=== PATIENT | female | born 1970 | race Caucasian/White ===

== ENCOUNTER 2023-12-18 05:46 | Emergency (ER) | payer SELFPAY ==
[2023-12-18 05:48] VITALS: BP 132/99; PULSE 76; RESP 18; TEMP 36.6; O2SAT 97; BMI 27.4
--- NOTE | 2023-12-18 06:05 | RAD_ITS ---
EXAM: XR LEFT WRIST COMPLETE, 3 OR MORE VIEWS CLINICAL INDICATION: pain pain TECHNIQUE: Frontal, lateral and oblique views of the left wrist. COMPARISON: No relevant prior studies available. FINDINGS: BONES/JOINTS: Unremarkable. No acute fracture. No subluxation. Normal alignment. Preservation of the joint space. No sclerotic or destructive changes observed. SOFT TISSUES: Unremarkable. No soft tissue gas. No radiopaque foreign body. RAD/Wrist min 3 Views IMPRESSION: No demonstrated fracture, dislocation, or destructive osseous lesion. Electronically Signed: Chris Frye MD at 6:56 EDT Reading Location ID and State: [facility] / [place] , Service support ,
--- NOTE | 2023-12-18 06:10 | EX.ED.UPPERE ---
HPI History of Present Illness Chief Complaint: Upper Extremity Injury Informant: patient and family Narrative Narrative: Patient is a 53-year-old female who reports no significant past medical history. She states around 5 PM yesterday she was walking out of her apartment when she tripped and fell landing on her right hand/wrist. She denies striking her head or any loss of consciousness. She denies any history of bleeding disorder or blood thinner use. Her daughter states she saw the event and confirms it was mechanical in nature and there was no LOC. Patient states that she has had pain bruising and swelling that has worsened throughout the night and with concern for fracture comes in for evaluation. [facility] Medical History no medical history no medical history Home Medications ?Medication ?Instructions ?Recorded ?Last Taken ?Type ondansetron HCl 4 mg tablet 4 mg PO TID PRN nausea and 12/18/23 Unknown Rx vomiting #21 tabs oxycodone-acetaminophen 5 mg-325 1 tab PO Q6H PRN pain 3 days #12 12/18/23 Unknown Rx mg tablet (Percocet) tabs Allergy/AdvReac Type Severity Reaction Status Date / Time No Known Allergies Allergy Verified 12/18/23 05:48 Family History no significant family his Surgical History (Updated 12/18/23 @ 05:52 by Elías Rogers) Hx of appendectomy Social History (Updated 12/18/23 @ 05:53 by Elías Rogers) number of children: 3 Smoking Status: Never smoker ROS ROS ED Constitutional Constitutional ED: Denies chills or fever(s) Eyes Eyes: Denies blurry vision or change in vision ENT ENT ED: Denies sore throat Cardiovascular Cardiovascular: Reports other Details: Negative syncope ; Denies chest pain Respiratory/Chest Respiratory/Chest: Denies cough or dyspnea Gastrointestinal Gastrointestinal: Reports nausea; Denies abdominal pain, diarrhea or vomiting Genitourinary Genitourinary ED: Denies dysuria Musculoskeletal Musculoskeletal: Reports other Details: Positive left wrist pain ; Denies neck pain Integumentary Reports Abrasions and other Details: Positive left wrist bruising and swelling Neurologic Neurologic: Denies headache(s), paresthesias or weakness Hematologic/Lymphatic Hematologic/Lymphatic: Denies easy bleeding or easy bruising EXAM Physical Exam Const Vital Signs: 12/18/23 05:48 Temperature 97.8 F Temperature Source Oral Pulse Rate 76 Respiratory Rate 18 Blood Pressure 132/99 H Blood Pressure Mean 110 Pulse Ox 97 Oxygen Delivery Method Room Air Positive well nourished and well developed General Appearance ED: well developed HEENT HEENT Narrative: Normocephalic atraumatic No signs of depressed or basilar skull fracture Eyes PERRL and EOMs intact bilaterally Eyes Narrative: No hyphema noted Neck full ROM and supple Neck Narrative: No bony deformity or step-off of the cervical spine no midline tenderness to palpation Chest Wall palpation of chest normal Resp normal respiratory effort and clear to auscultation bilaterally Cardio regular rate and regular rhythm Back/Spine Back/Spine Narrative: No bony deformity or step-off of the thoracic or lumbar spine no midline tenderness to palpation Extremity Extremity Narrative: Left upper extremity is neurovascularly intact;AIN/PIN are intact and normal. Active range of motion is decreased secondary to pain. There is soft tissue swelling and ecchymosis along the dorsal and volar aspect of the left hand and wrist near the base of the fifth metacarpal. No obvious bony deformity. No rotational deformity. No subungual hematoma. No pain in the anatomical snuffbox. No obvious ligamentous or tendon laxity noted. Remainder of the exam is normal Neuro oriented x3, CN's II-XII intact bilaterally and no sensory deficits noted Sensorium / Orientation: alert Psych mental status grossly normal Skin Skin Narrative: Soft tissue swelling and ecchymosis to the left hand/wrist as documented above MDM MDM MDM Narrative Medical decision making narrative: Patient arrived to the ER and reported a mechanical fall and therefore I felt no need for cardiac or syncope workup. She states she did not strike her head or have loss of consciousness nor does she take blood thinners or have a history of bleeding disorder. Secondary to these facts I felt no need for head CT. With pain and swelling and bruising along the left wrist/hand there is concern for fracture versus contusion versus ligamentous sprain or tear. An x-ray was obtained which revealed no obvious acute bony deformity or joint effusion. By physical exam there is no obvious ligamentous laxity either indicating that this is a contusion and sprain. Therefore patient was placed in a Velcro splint for stabilization but is otherwise safe for discharge History & Record Review Discussion w/independent historian: Patient and Family Radiography Diagnostic Testing: X-ray of the left wrist as interpreted by the emergency medicine physician reveals no acute fracture dislocation or joint effusion Discharge Plan Triage Chief Complaint: Upper Extremity Injury ED Provider: Ankit May Dx/Rx/DC Orders Clinical Impression: Left wrist sprain, Contusion of left wrist, initial encounter, Accidental fall Instructions: Bone Contusion, ED Wrist Sprain Prescriptions: New oxycodone-acetaminophen [Percocet] 5-325 mg tablet 1 tab PO Q6H PRN (Reason: pain) 3 Days Qty: 12 0RF ondansetron HCl 4 mg tablet 4 mg PO TID PRN (Reason: nausea and vomiting) Qty: 21 0RF Primary Care Provider: Sujata Ortiz Referrals: Sujata Ortiz [Other] Activity Restrictions/Additional Instructions: Please wear your wrist brace for stabilization and comfort. Symptoms should improve over the next 1 to 2 weeks. If pain persist you may need repeat x-ray and/or MRI for further evaluation. Return to the ER should you have any further concerns Print Language: Ethiopian Disposition Disposition: Home, Self Care
[2023-12-18] MEDS: Ondansetron ODT 4 MG Tablet PO (06:13)
[2023-12-18] MEDS: morphine 10 MG/ML Syringe 8 MG IM (06:14)
[2023-12-18 07:10] VITALS: BP 126/84; PULSE 74; RESP 16; TEMP 36.6; O2SAT 99
== END 2023-12-18 07:21 | disposition home or self-care (01) ==
PROVIDERS: Emergency Provider Emergency Medicine; Visit Provider Emergency Medicine
DX: S63.92XA Sprain of unspecified part of left wrist and hand, initial encounter (principal); S60.212A Contusion of left wrist, initial encounter; W19.XXXA Unspecified fall, initial encounter
CPT/HCPCS: 73110; 96374; 99283